=== PATIENT | female | born 1975 | race Asian ===

== ENCOUNTER 2020-06-15 15:56 | Emergency (ER) | payer OTHER ==
--- NOTE | 2020-06-15 16:30 | ED Physician Documentation ---
History of Present Illness - Stated complaint Stated Complaint: العلي, ELEVATED BP - Chief complaint Chief Complaint: Cardiac - History obtained from History obtained from: Patient (84-year-old woman who saw her physician recently for elevated blood pressures. Blood pressure in the office was 168/97. Lab work was done and normal per her including normal renal function. The last couple of days has developed a diffuse throbbing headache which concerns her. She was not started) Review of Systems Constitutional: denies: Fever, Chills, Fatigue Cardiac: denies: Chest pain / pressure, Palpitations, Pedal edema, Calf pain Respiratory: denies: Dyspnea, Cough PD PAST MEDICAL HISTORY - Present Medications Home Medications: Ambulatory Orders Medication Instructions Recorded Confirmed Losartan [Cozaar] 50 mg PO DAILY #60 tablet 06/15/20 - Allergies Allergies/Adverse Reactions: Allergies Allergy/AdvReac Type Severity Reaction Status Date / Time No Known Drug Allergies Allergy Verified 06/15/20 16:22 PD ED PE NORMAL - Vitals Vital signs reviewed: Yes - General General: Alert and oriented X 3, No acute distress - HEENT HEENT: PERRL, EOMI - Neck Neck: Supple, no meningeal sign, No bony TTP - Cardiac Cardiac: RRR, No murmur - Respiratory Respiratory: No respiratory distress, Clear bilaterally - Abdomen Abdomen: Non tender - Extremities Extremities: No edema, No calf tenderness / cord - Neuro Neuro: Alert and oriented X 3, No motor deficit, No sensory deficit - Psych Psych: Normal mood, Normal affect Results - Vitals Vitals: Vital Signs - 24 hr 06/15/20 16:19 Temperature 37.2 C Heart Rate 87 Respiratory 16 Rate Blood Pressure 165/112 H O2 Saturation 98 Oxygen O2 Source Room air - EKG (time done) 1635 Rate: Rate (enter#) (68) Rhythm: NSR [place]: Normal Intervals: Normal [place] QRS: Normal Ischemia: Non specific changes Computer interpretation: Agree with computer PD MEDICAL DECISION MAKING - ED course ED course: 44-year-old woman with headache and uncontrolled hypertension. Her examination is otherwise normal. A CT of the head was done and interpreted contemporaneously by me and normal. She will be started on losartan. Departure - Departure Disposition: 01 Home, Self Care Clinical Impression: Essential hypertension Headache Qualifiers: Headache type: other headache syndrome Qualified Code(s): G44.89 - Other headache syndrome Condition: Good Instructions: ED Hypertension New Begin Tx Prescriptions: Losartan [Cozaar] 50 mg PO DAILY #60 tablet Comments: If blood pressure is persistently elevated you can double the dose of losartan to 100 mg daily. Return if worsening. Follow-up with your primary care physician, next available appointment. Note it is unsafe to get on the new medication.
--- NOTE | 2020-06-15 17:06 | CT Report ---
PROCEDURE: HEAD WO INDICATIONS: headache TECHNIQUE: Noncontrast 4.5 mm thick angled axial sections acquired from the foramen magnum to the vertex. For r adiation dose reduction, the following was used: automated exposure control, adjustment of mA and/or kV according to patient size. COMPARISON: None. FINDINGS: Image quality: Excellent. CSF spaces: Basal cisterns are patent. No extra-axial fluid collections. Ventricles are normal in size and shape. Brain: No intracranial hemorrhage, mass, or mass effect.. [place]-white matter interface is normal. Skull and face: Calvarium and visualized facial bones are intact, without suspicious lesions. Sinuses: Visualized sinuses and mastoids are clear. IMPRESSION: 1. No acute intracranial abnormality. Reviewed by: Jan Davdi MD on 06/15/2020 5:05 PM PDT Approved by: Jan David MD on 06/15/2020 5:05 PM PDT Station ID: [id number]
[2020-06-15 17:26] VITALS: BP 160/100
== END 2020-06-15 17:25 | disposition home or self-care (01) ==
LOC: ED 15:56
DX: I10 Essential (primary) hypertension (principal); G44.89 Other headache syndrome
CPT/HCPCS: 70450; 93005; 99284

== ENCOUNTER 2020-10-24 10:36 | Emergency (ER) | payer OTHER ==
--- NOTE | 2020-10-24 10:47 | ED Physician Documentation ---
History of Present Illness - Stated complaint Stated Complaint: HIGH BLOOD PRESSURE - Chief complaint Chief Complaint: Cardiac - History obtained from History obtained from: Patient - Additonal information Additional information: 45-year-old woman with history of hypertension. She is on we think losartan at a dose of 50 mg in the morning and 20 5 at night. She has noticed recently that her blood pressures have been high. Yesterday it was 160/90, today was 190/90. She has a mild headache with it. No chest pain or trouble breathing. No urinary complaints. No pedal edema. Review of Systems Constitutional: denies: Fever, Chills Cardiac: denies: Chest pain / pressure, Palpitations Respiratory: denies: Dyspnea, Cough PD PAST MEDICAL HISTORY - Past Medical History Cardiovascular: Hypertension - Past Surgical History Past Surgical History: No - Present Medications Home Medications: Ambulatory Orders Medication Instructions Recorded Confirmed Losartan [Cozaar] 50 mg PO DAILY #60 tablet 06/15/20 10/24/20 - Allergies Allergies/Adverse Reactions: Allergies Allergy/AdvReac Type Severity Reaction Status Date / Time No Known Drug Allergies Allergy Verified 10/24/20 10:42 - Social History Does the pt smoke?: No Smoking Status: Never smoker Does the pt drink ETOH?: No Does the pt have substance abuse?: No - Immunizations Immunizations are current?: Yes PD ED PE NORMAL - Vitals Vital signs reviewed: Yes - General General: Alert and oriented X 3, No acute distress - HEENT HEENT: PERRL, EOMI - Cardiac Cardiac: RRR, No murmur - Respiratory Respiratory: No respiratory distress, Clear bilaterally - Abdomen Abdomen: Non tender - Neuro Neuro: Alert and oriented X 3, No motor deficit, No sensory deficit, Normal speech Results - Vitals Vitals: Vital Signs - 24 hr 10/24/20 10/24/20 10:43 11:07 Temperature 36.1 C L 36.7 C Heart Rate 70 71 Respiratory 19 11 L Rate Blood Pressure 167/91 H 146/95 H O2 Saturation 100 99 Oxygen O2 Source Room air - EKG (time done) 1053 Rate: Rate (enter#) (66) Rhythm: NSR [place]: Normal Intervals: Normal [place] QRS: Normal Ischemia: Normal ST segments - Labs Labs: Laboratory Tests 10/24/20 10:54 Sodium 142 Potassium 3.5 Chloride 106 Carbon Dioxide 26 Anion Gap 10.0 BUN 10 Creatinine 0.5 Estimated GFR (MDRD) 135 Glucose 92 Calcium 8.8 PD MEDICAL DECISION MAKING - ED course ED course: 45-year-old woman presents for elevated blood pressure without evidence of endorgan damage. With time and reassurance by the time of discharge her blood pressure was 144/87. Departure - Departure Disposition: Home, Self Care Clinical Impression: Essential hypertension Condition: Good Record reviewed to determine appropriate education?: Yes Instructions: ED Diet Low Salt 2Gm Comments: Recheck with your doctor in a week, return for new or worsening symptoms.
[2020-10-24 11:08] LABS: CALCIUM 8.8 mg/dL (8.5-10.3); CREATININE 0.5 mg/dL (0.4-1.0); POTASSIUM 3.5 mmol/L (3.5-5.0)
[2020-10-24 11:39] VITALS: BP 144/84
== END 2020-10-24 11:39 | disposition home or self-care (01) ==
LOC: ED 10:36
DX: I10 Essential (primary) hypertension (principal); R51.9 Headache, unspecified
CPT/HCPCS: 36415; 80048; 93005; 99283

== ENCOUNTER 2021-03-19 09:21 | Outpatient (CLI) | payer OTHER ==
--- NOTE | 2021-03-20 15:13 | Mammography Report ---
BILATERAL DIGITAL SCREENING MAMMOGRAM 3D/2D: 03/19/2021 CLINICAL: Baseline exam. Routine screening. No prior exams were available for comparison. The tissue of both breasts is heterogeneously dense. T his may lower the sensitivity of mammography. No significant masses, calcifications, or other findings are seen in either breast. IMPRESSION: NEGATIVE There is no mammographic evidence of malignancy. A 1 year screening mammogram is recommended. This exam was interpreted at Station ID: [id number]. NOTE: For mammograms, a report in lay terms will be sent to the patient. Approximately 15% of breast malignancies will not be visualized mammographically. In the management of a palpable breast mass, a negative mammogram must not discourage biopsy of a clinically suspicious lesion. Electronically Signed By: Jan David M.D. [email or web address]/[email or web address]:03/19/2021 09:59:51 ACR BI-RADS Category 1: Negative 3341F PARENCHYMAL PATTERN: (D) - The breast(s) demonstrate(s) heterogeneously dense fibroglandular herb frias. BI-RADS CATEGORY: (1) - 1 RECOMMENDATION: (ANNUAL) - Recommend routine annual screening mammography. [id number] 1 year screening LATERALITY: (B)
== END 2021-03-19 09:22 | disposition home or self-care (01) ==
LOC: DI 09:21
DX: Z12.31 Encounter for screening mammogram for malignant neoplasm of breast (principal)

== ENCOUNTER 2021-05-20 18:10 | Emergency (ER) | payer OTHER ==
--- NOTE | 2021-05-20 20:58 | ED Physician Documentation ---
PD HPI HEADACHE - Stated complaint Stated Complaint: HIGH BP/HEAD PX - Chief complaint Chief Complaint: Cardiac - History obtained from History obtained from: Patient - History of Present Illness Timing - onset: How many days ago (2) Pain level max: 1 Pain level now: 1 Worst headache ever?: No: Worst headache ever? Location: Front Quality: Aching Associated symptoms: No: Fever, Stiff neck, Nausea, Vomiting, Weakness, Numbness, Eye pain, Vision changes Improved by: Nothing Worsened by: Other (nothing) Contributing factors: No: Anticoagulated Recently seen: Not recently seen - Additional information Additional information: chief c/o is high blood pressure. She notes high blood pressure readings on her home cuff throughout the weekend (past 2 days), as high as 200 systolic. She says she feels mild bifrontal headache and anterior neck "tight" (although she also says she "maybe thinking too much" (per patient)). Denies chest pain. She has needed some adjustments in her antihypertensive dosing recently for BP control. Review of Systems Eyes: denies: Loss of vision, Decreased vision Cardiac: reports: Reviewed and negative Respiratory: reports: Reviewed and negative Musculoskeletal: denies: Neck pain ("tightness" anteriorly but not pain per se) Neurologic: reports: Headache (mild/minimal bifrontal). denies: Generalized weakness, Focal weakness, Numbness PD PAST MEDICAL HISTORY - Past Medical History Cardiovascular: Hypertension - Past Surgical History Past Surgical History: No - Present Medications Home Medications: Ambulatory Orders Medication Instructions Recorded Confirmed Losartan [Cozaar] 75 mg PO DAILY 05/20/21 norgestimate-ethinyl estradioL 1 each PO 05/20/21 [Norgestimate-Ee 0.25-0.035 mg] - Allergies Allergies/Adverse Reactions: Allergies Allergy/AdvReac Type Severity Reaction Status Date / Time No Known Drug Allergies Allergy Verified 10/24/20 10:42 - Social History Does the pt smoke?: No Smoking Status: Never smoker Does the pt drink ETOH?: No Does the pt have substance abuse?: No - Immunizations Immunizations are current?: Yes PD ED PE NORMAL - Vitals Vital signs reviewed: Yes - General General: Alert and oriented X 3, No acute distress, Well developed/nourished - Neck Neck: Supple, no meningeal sign - Cardiac Cardiac: RRR, No murmur - Respiratory Respiratory: No respiratory distress, Clear bilaterally Results - Vitals Vitals: Vital Signs - 24 hr 05/20/21 05/20/21 05/20/21 20:47 21:11 22:18 Temperature 36.4 C L Heart Rate 76 71 69 Respiratory 17 15 16 Rate Blood Pressure 162/94 H 149/83 H 147/78 H O2 Saturation 99 98 100 Oxygen O2 Source Room air - EKG (time done) No standard instances Rate: Rate (enter#) (69) Rhythm: NSR [place]: Normal Intervals: Normal [place] QRS: Normal Ischemia: Normal ST segments PD MEDICAL DECISION MAKING - ED course Complexity details: re-evaluated patient, considered differential, d/w patient ED course: without intervention, patient's blood pressures trended down during ED observation (157/102, 162/94, 149/83, 147/78). I pointed this out to patient and explained that specific intervention (such as changing her medication regimen) and further testing (beyond the EKG) are not indicated at this time. I explained that she might need to have her medications adjusted, but she needs to record her blood pressures, 2-3 times per day, and see her PMD so that a decision based on more data can be made. EKG performed due to vague c/o neck discomfort, but it is unremarkable Departure - Departure Disposition: 01 Home, Self Care Clinical Impression: Essential hypertension Condition: Good Instructions: ED Hypertension Conf Out Of Control Comments: Contact your primary care provider to discuss possibly changing your blood pressure medication (options would include dose adjustment, adding a second medication, changing to a different medication, or possibly staying with the same dose and frequency if your doctor does not feel adjustment(s) are indicated). Discharge Date/Time: 05/20/21 22:18
[2021-05-20 22:19] VITALS: BP 147/78
== END 2021-05-20 22:18 | disposition home or self-care (01) ==
LOC: ED 18:10
DX: I10 Essential (primary) hypertension (principal)
CPT/HCPCS: 93005; 99283